=== PATIENT | male | born 1955 | race Caucasian/White ===

== ENCOUNTER → 2017-01-31 | Outpatient (CLI) | payer OTHER ==
[~2017-01-31] VITALS: Ht 185.4 cm; Wt 101.3 kg
[~2017-01-31] MED LIST: AFRINWC; ASPCH81; ASPI-589 PEG; ATEN50TA8 PO; FENO134C2 PO; FLM4 PO; IBUP-103 PO; NTRGSL/4 UT; OMEG10007 PO; SERT-234 PO; SIMV40TA2 PO
[2017-01-31 13:32] VITALS: BP 127/78; PULSE 68; Ht 185.4 cm; Wt 101.3 kg
== END | disposition home or self-care (01) ==
LOC: C.NEUR 13:06
PROVIDERS: ATTEND Physician Assistant
DX: G47.30 Sleep apnea, unspecified (principal); E78.1 Pure hyperglyceridemia; I25.10 Atherosclerotic heart disease of native coronary artery without angina pectoris; Z87.891 Personal history of nicotine dependence

== ENCOUNTER 2017-03-29 05:02 | Inpatient (IN) | payer OTHER ==
[2017-02-08 13:18] VITALS: BMI 29.0
--- NOTE | 2017-02-08 13:58 | PAT Medication Instructions ---
Service Date Feb 08, 2017. Current Home Medication List Aspirin (Aspirin Adult Low Dose), 1 TAB PEG QPM Atenolol (Tenormin), 50 MG PO QPM Fenofibrate (Tricor ), 134 MG PO QAM Fish Oil ([place]-3), 1 CAP PO QAM Ibuprofen Tab (Advil), 200-600 MG PO Q4H PRN for Pain Nitroglycerin (Nitrostat), 0.4 MG UT PRN Oxymetazoline Hcl (Afrin 0.05% Nasal [place]), 1 SPRAY NA allergies Sertraline (Zoloft), 100 MG PO QAM Simvastatin (Zocor), 40 MG PO QPM Tamsulosin HCl (Tamsulosin HCl), 1 TAB PO QPM Medication Instructions For Your Scheduled Surgery - Check with surgeon for instructions: Ibuprofen Tab (Advil), 200-600 MG PO Q4H PRN for Pain - Hold the following medications 2 weeks prior to surgery: Fish Oil ([place]-3), 1 CAP PO QAM - Take the following medications the morning of surgery with a sip of water: Sertraline (Zoloft), 100 MG PO QAM OxymetazolineNitroglycerin (Nitrostat), 0.4 MG UT PRN (if needed) Nasal Hcl (Afrin 0.05% Nasal [place]), 1 SPRAY NA allergies (if needed) Fenofibrate (Tricor ), 134 MG PO QAM Nitro PRN (if needed) - Take the following medications as scheduled the night before surgery: Tamsulosin HCl (Tamsulosin HCl), 1 TAB PO QPM Simvastatin (Zocor), 40 MG PO QPM Oxymetazoline Hcl (Afrin 0.05% Nasal [place]), 1 SPRAY NA allergies (if needed) Atenolol (Tenormin), 50 MG PO QPM Aspirin (Aspirin Adult Low Dose), 1 TAB PEG QPM (okay to continue per surgeon) Nasal Hcl (Afrin 0.05% Nasal [place]), 1 SPRAY NA allergies (if needed) Nitro PRN (if needed) If you have any questions please call us at [phone] or [phone] or [phone]
--- NOTE | 2017-02-08 14:39 | DIAGNOSTIC IMAGING REPORT ---
CHEST PREADMISSION(PA/LAT) CLINICAL HISTORY: 62 years-old Male presenting with preoperative assessment. TECHNIQUE: PA and lateral views of the chest were obtained. COMPARISON: 11/15/2006. FINDINGS: Cardiac silhouette top normal in size. A coronary artery stent may be in place. Lungs and pleural spaces clear. Degenerative changes of the thoracic spine. Upper abdomen normal. IMPRESSION: 1. No acute cardiopulmonary disease. Electronically signed by: Tio Zepeda M.D. 02/08/2017 2:38 PM Dictated Date/Time: 02/08/2017 2:37 PM
[2017-02-08 15:30] LABS: BASO % 0.6 %; BASO ABS # 0.04 K/uL (0-0.2); COMPLETE YES; EOS % 1.4 %; IG% 0.3 %; LYMPH % 33.2 %; LYMPH ABS # 2.15 K/uL (1.2-3.4); MEAN CELL VOLUME 88.8 fL (80-100); MEAN CORPUSCULAR HEMOGLOBIN 30.8 pg (25-34); MEAN CORPUSCULAR HGB CONC 34.7 g/dl (32-36); MEAN PLATELET VOLUME 10.7 fL (7.4-10.4); MONO % 7.3 %; NEUT % 57.2 %; PLATELET COUNT 236 K/uL (130-400); RED BLOOD COUNT 4.84 M/uL (4.7-6.1); WHITE BLOOD COUNT 6.48 K/uL (4.8-10.8)
[2017-02-08 15:42] LABS: INR 1.1 (0.9-1.1); PROTHROMBIN TIME (PATIENT) 11.5 SECONDS (9.0-12.0)
[2017-02-08 16:11] LABS: BUN/CREATININE RATIO 23.9 (10-20); CREATININE 1.1 mg/dl (0.60-1.40); POTASSIUM 4.1 mmol/L (3.5-5.1)
--- NOTE | 2017-03-23 19:30 | HISTORY & PHYSICAL EXAMINATION ---
DATE OF ADMISSION: 03/29/2017 CHIEF COMPLAINT: Left knee pain. HISTORY OF PRESENT ILLNESS: A 62-year-old gentleman who presents for surgical treatment of his left knee. He has got a 3-year history of increasing left knee pain and discomfort, treated by my partner Dr. Stiles. He has had an injection into his knee which helped him initially. The second shot did not help much. He has become more debilitated by his pain. With use of ice, elevation, anti-inflammatories with minimal relief. He has difficulty going on any long walks. He has difficulty going up and down steps. The more he walks, the more it hurts. He would like to proceed with surgical treatment. PAST MEDICAL HISTORY: 1. Elevated cholesterol. 2. Coronary artery disease, status post stent placement in [facility]2006, on baby aspirin. 3. Sleep apnea with CPAP machine. 4. Anxiety. 5. Low back pain/sciatica. PAST SURGICAL HISTORY: Include cardiac catheterization and stent placement in 2006. ALLERGIES: SULFA. CURRENT MEDICINES: Include: 1. Atenolol. 2. Fenofibrate. 3. Atorvastatin. 4. Zoloft. 5. Flomax. 6. Aspirin 81 mg. 7. NSAIDS intermittently. SOCIAL HISTORY: A 62-year-old male. He is . He does not smoke. One drink per week. FAMILY HISTORY: Colon cancer. REVIEW OF SYSTEMS: Negative for diabetes, neurologic problems, vascular problems, bleeding disorders. Denies any chest pain, no shortness of breath. No history of DVT or PE. No bleeding problems. PHYSICAL EXAMINATION: GENERAL: Reveals a healthy, pleasant, middle-aged male. He looks to be in pretty good health. HEENT: Benign. NECK: Supple. No lymphadenopathy. LUNGS: Clear to auscultation. HEART: Regular rate and rhythm. ABDOMEN: Soft, nontender, nondistended. EXTREMITIES: Grossly neurovascularly intact except as follows: Examination of the knee and leg reveals the patient walks independently. He has got varus alignment to his knee. With weightbearing, he does have a varus thrust. He has got bony hypertrophy medially. Range of motion is 5-10 degrees short of full extension to 120 degrees of flexion. No instability. No pain with hip motion. X-RAYS: X-rays of the left knee were reviewed. It shows advanced left knee medial compartment DJD. He has got complete loss of his medial joint space. He has got some loose pieces in his intercondylar notch area. He has got significant patellofemoral arthritis. ASSESSMENT: A 62-year-old male with advanced left knee degenerative joint disease. He has failed conservative care and would like to have his left knee replaced. PLAN: We are going to take him to the operating room and do a left total knee replacement. The risks and benefits of this procedure were explained to the patient including but not limited to DVT, PE, , infection, neurologic injury, vascular injury, bleeding problems, pain, limited range of motion, stiffness, failure to relieve symptoms, incomplete relief of symptoms, need for further surgery in the future, etc. The patient understands and desires to assess. Informed consent was obtained. As far as discharge plans, he is planning to be discharged to home in using the [facility] home health program. We talked to him about taking atenolol the morning of surgery. We will plan on aspirin twice a day for DVT prophylaxis.
[~2017-03-29] VITALS: Ht 185.4 cm; Wt 96.3 kg
[2017-03-29] VITALS (9 sets, daily range): BP systolic 100–120; BP diastolic 58–75; PULSE 49–66; TEMP 36.4–37.3; O2SAT 94–98; Ht 185.4 cm; Wt 96.3 kg
[~2017-03-29 05:02] MED LIST changes: -ASPCH81; -ASPI-589 PEG; +ASPI-589 PO
[2017-03-29] MEDS ORDERED: METF1TAB53 PO (05:50)
[2017-03-29] MEDS ORDERED: BUPIVACAINE LIPOSOME 266 MG, BUPIVACAINE/EPINEPHRINE INJ 50 ML, SODIUM CHLORIDE 0.9% PF... INFIL SCH ×3 (06:00)
[2017-03-29] MEDS ORDERED: LACTATED RINGER'S 1000ML IV SCH (06:00)
[2017-03-29] MEDS ORDERED: ACETAMINOPHEN 500 MG TAB PO SCH (06:00)
[2017-03-29] MEDS ORDERED: SCOPOLAMINE 1.5 MG TDSY TD SCH (06:00)
[2017-03-29] MEDS ORDERED: FAMOTIDINE 20 MG TAB PO SCH (06:00)
[2017-03-29] MEDS ORDERED: METOCLOPRAMIDE HCL 10 MG TAB PO SCH (06:00)
[2017-03-29] MEDS ORDERED: LACTATED RINGER'S 1000ML 500 ML IV ONE (06:00)
[2017-03-29] MEDS ORDERED: LACTATED RINGER'S 1000ML 1,000 ML IV SCH (06:00)
[2017-03-29] MEDS ORDERED: GABAPENTIN 300 MG CAP PO SCH (06:00)
[2017-03-29] MEDS ORDERED: BUPIVACAINE 0.5 % 5 MG/1 ML PF 10ML VIAL ONE (06:17)
[2017-03-29] MEDS ORDERED: ROPIVACAINE 0.5% 5 MG/ML 30 ML VIAL ONE (06:17)
[2017-03-29] MEDS ORDERED: TRANEXAMIC ACID INJ 1,000 MG in SYRINGE 0 ML IV SCH (06:30)
[2017-03-29] MEDS ORDERED: BUPIVACAINE LIPOSOME 1/3% 266 MG/20 ML VIAL INFIL ONE (06:34)
[2017-03-29] MEDS ORDERED: BUPIVACAINE/EPINEPHRINE 0.25% 1:200,000 30 ML VIAL ONE (06:34)
[2017-03-29] MEDS ORDERED: BACITRACIN 50000 UNIT VIAL ONE (06:34)
[2017-03-29] MEDS ORDERED: SODIUM CHLORIDE 0.9% PF 50 ML VIAL ONE (06:34)
[2017-03-29] MEDS ORDERED: FENTANYL CITRATE INJ 50 MCG/1 ML 2 ML VIAL ONE (06:44)
[2017-03-29] MEDS ORDERED: MIDAZOLAM HCL 1 MG/ML 2ML VIAL ONE (06:44)
--- NOTE | 2017-03-29 06:54 | History & Physical Bridge Note ---
H&P Re-Evaluation Bridge Note: I have examined the patient, reviewed the History & Physical and in the interval since the performance of the History & Physical I have noted the following changes of clinical significance: No changes noted
[2017-03-29] MEDS: CEFAZOLIN 2000MG IV PUSH 10 ML IV SCH ×2 (07:07→07:50)
[2017-03-29] MEDS ORDERED: ALBUTEROL HFA INHALER 8.5 GM INH ONE (07:59)
[2017-03-29] MEDS ORDERED: PROPOFOL IV EMULSION 10 MG/ML 20 ML VIAL IV ONE (08:00)
[2017-03-29] MEDS ORDERED: ONDANSETRON INJ 2 MG/ML 2 ML VIAL IV PRN ×2 (08:15→09:00)
[2017-03-29] MEDS ORDERED: HYDROmorphone INJ 2 MG/ML SYR/VIAL IV PRN (08:15)
[2017-03-29] MEDS ORDERED: PHENYLEPHRINE 100MCG/ML 5ML SYR IV PRN (08:15)
[2017-03-29] MEDS ORDERED: ATROPINE SULFATE 0.1 MG/ML 5ML SYR IV PRN (08:15)
[2017-03-29] MEDS ORDERED: EpHEDrine SULFATE INJ 50 MG/ML AMP IV PRN (08:15)
--- NOTE | 2017-03-29 08:50 | [facility] Post Operative Brief Note ---
Immediate Operative Summary Operative Date Mar 29, 2017. Pre-Operative Diagnosis Advanced Left Knee Degenerative Joint Disease Post-Operative Diagnosis Advanced Left Knee Degenerative Joint Disease Procedure(s) Performed Left Total Knee Arthroplasty Surgeon Dr. Blue Security Intelligence Analyst Surgeon(s) ISHAAN Correia Estimated Blood Loss 50 ml Findings Left Knee DJD Specimens A. Left Knee Bone and Tissue Drains None Anesthesia Spinal Complication(s) None Disposition Recovery Room / PACU
[2017-03-29] MEDS ORDERED: GLUCAGON FOR INJ 1 MG VIAL SQ PRN (09:00)
[2017-03-29] MEDS ORDERED: METOCLOPRAMIDE HCL INJ 5 MG/ML 2 ML VIAL IV PRN (09:00)
[2017-03-29] MEDS ORDERED: MAGNESIUM HYDROXIDE SUSP 30 ML UDC PO PRN (09:00)
[2017-03-29] MEDS ORDERED: DEXTROSE 50% 50 ML SYR IV PRN (09:00)
[2017-03-29] MEDS ORDERED: OXYMETAZOLINE HCL 0.05% NA SPR 15 ML BTL PRN (09:00)
[2017-03-29] MEDS ORDERED: ZOLPIDEM TARTRATE 5 MG TAB PO PRN (09:00)
[2017-03-29] MEDS ORDERED: HYDROmorphone INJ 0.5 MG/0.5 ML SYR IV PRN (09:00)
[2017-03-29] MEDS ORDERED: DiphenhydrAMINE HCL 50 MG/ML VIAL IV PRN (09:00)
[2017-03-29] MEDS ORDERED: ALUMINUM/MAGNESIUM/SIMETH (MAALOX MAX) 30 ML UDC PO PRN (09:00)
[2017-03-29] MEDS ORDERED: TAMSULOSIN HCL 0.4 MG CAP PO PRN (09:00)
[2017-03-29] MEDS ORDERED: NITROGLYCERIN 0.4 MG SL PER TAB CHARGE UT PRN (09:00)
[2017-03-29] MEDS ORDERED: GLUCOSE 40% GEL 15 GM TUBE PO PRN (09:00)
[2017-03-29] MEDS ORDERED: GLUCOSE 10 TABS/TUBE PO PRN (09:00)
[2017-03-29] MEDS ORDERED: BISACODYL 10 MG SUPP PR PRN (09:00)
--- NOTE | 2017-03-29 09:14 | OPERATIVE REPORT ---
DATE OF OPERATION: 03/29/2017 PREOPERATIVE DIAGNOSIS: Left knee degenerative joint disease. POSTOPERATIVE DIAGNOSIS: Same. PROCEDURE PERFORMED: Left cemented posterior stabilized total knee arthroplasty. SURGEON: Dr. Zeeshan Blue. PIPE AND TEST SUPERVISOR: Taurus Whitaker PA-C. COMPLICATIONS: None. ESTIMATED BLOOD LOSS: 50 mL. FLUID REPLACEMENT: 1500 mL crystalloid fluid replacement. TOURNIQUET TIME: 60 minutes at 300 mmHg. ANESTHESIA: Spinal with adductor canal block. DRAINS: None. SPECIMENS: Left knee sent for pathology. OPERATIVE INDICATIONS: The patient is a 61-year-old male who has had a 3-year history of gradually increasing and progressive knee pain and discomfort. He has been treated by my partner Dr. Stiles. This became less successful over time. X-rays revealed advanced left knee DJD. He elected to proceed with surgical treatment. OPERATIVE FINDINGS: Operative findings revealed advanced left knee DJD. He had grade 4 [id number] disease extensively in the medial femoral condyle and medial tibial plateau with eburnation in that entire compartment as well as fixed varus deformity to his knee. He had multiple loose bodies in the posterior aspect of his knee. He had a varus alignment to his knee. OPERATIVE IMPLANTS: Operative implants consisted of: 1. Biomet Vanguard size 72.5 left posterior stabilized femoral component. 2. Biomet size 79 tibial tray. 3. A 10 mm posterior stabilized polyethylene insert. 4. A 34 x 8.5 all poly patella. OPERATIVE PROCEDURE: The patient taken to the operating room, identified and placed on the operating table in supine position. All contact areas were appropriately padded. IV antibiotics were provided by anesthesia team. A spinal anesthetic and adductor canal block had been provided in the holding area. Garcias catheter was placed in sterile fashion. A left thigh tourniquet was then placed and left lower extremity was then prepped and draped in the usual sterile fashion. Left leg was elevated and exsanguinated with the use and exsanguinated with use of an Esmarch and tourniquet was placed at 300 mmHg. An anterior approach to the left knee was then performed through a longitudinal incision centered over the patella. Sharp dissection was carried down through the subcutaneous tissues down to the level of the extensor mechanism. A medial parapatellar arthrotomy incision was made. Some subperiosteal dissection was carried out medially. The fat pad was resected from beneath the patellar tendon. Lateral patellofemoral ligament was released. The patella was everted and knee was flexed. The osteophytes were taken off the distal femur. The ACL and PCL were then released from the distal femur and the tibia subluxated anteriorly. The external tibial alignment jig was then placed on the anterior face of the tibia and adjusted 16 mm medially. Proximal tibial cut was made to remove about a millimeter or 2 of bone from the most deficient aspect of the medial tibial plateau. The tibia was then sized to a size 79. Some osteophytes were taken off medial and posteromedially. Attention was then drawn to the femur. The distal femur was entered with a sharp drill bit. Intramedullary canal was suctioned. A left 6-degree valgus cutting guide was placed. Distal femoral cutting block was pinned in place. Distal femoral cut was made to take an additional 3 mm of bone off the distal femur. The femur was then sized to a size 72.5. We did downsize this slightly. The AP cutting block was pinned parallel to the epicondylar axis, which was 5 degrees of external rotation. The anterior cut, anterior chamfer, posterior cut, posterior chamfer cuts were made. Box cutting guide was placed and adjusted slightly lateral and the box cut was made. The knee was flexed. The remnants of the medial and lateral menisci were excised. The osteophytes were taken off the posterior aspect of the femur. A trial femoral component was placed. Tibial tray was pinned in maximum external rotation and drill and stem punch were used to create defect in proximal tibia for the tibial tray. The knee was then trialed and a 10 mm insert fit most appropriately. Attention was then drawn to the patella. The patella was cleaned of all soft tissues. Patella thickness measured 21 mm in thickness and was cut down to 14. It was sized to a 34 patella. Lug holes were drilled for a 34 patella. Lateral osteophyte was removed. Patella button was placed. Knee was taken through range of motion and the patella tracked nicely with no thumbs test. Attention was then drawn toward placement of the permanent components. All trial components were removed. A bone plug was placed in the distal femur to limit blood loss. A double batch of [place] G cement was mixed. A left size 72.5 posterior stabilized femoral component, size 79 tibial tray, a 10 mm posterior stabilized polyethylene insert, and a 34 x 8.5 all poly patella then cemented in place. Knee was brought out into full extension until cement hardened. A final cement check was then performed. Pericapsular tissues were injected with a total of 100 mL of a combination of 20 mL of Exparel, 30 mL of normal saline, 50 mL of 0.25% Marcaine with epinephrine. The patient did receive 1 gram of tranexamic acid. The tourniquet was then let down for final tourniquet time of 60 minutes. Hemostasis was assured with use of electrocautery. The extensor mechanism was then closed with a combination of #1 PDS suture and #1 Vicryl suture in a [id number] fashion. Extensor mechanism was checked and found to be intact. The subcutaneous tissues were then closed with 2-0 Dexon suture in buried interrupted fashion. Skin was closed skin piyush. Leg was then cleaned and dried and a sterile dressing of Xeroform, 4 x 4, sterile cast padding and Tyrone bandage were applied. The patient was then transferred to the recovery room in stable condition. The patient tolerated the procedure with no complications. All needle and sponge counts were correct at the end of the operation. I attest to the content of the Intraoperative Record and any orders documented therein. Any exception s are noted below.
--- NOTE | 2017-03-29 09:28 | DIAGNOSTIC IMAGING REPORT ---
L KNEE 1 OR 2 VIEWS ROUTINE CLINICAL HISTORY: 62 years-old Male presenting with AP/LATERAL IN PACU LEFT KNEE. TECHNIQUE: Frontal and crosstable lateral views the left knee were obtained. COMPARISON: 10/26/2016. FINDINGS: There has been interval total left knee arthroplasty potentially with patellar resurfacing. Intra-articular and soft tissue emphysema noted as well as overlying skin piyush. Underlying osteopenia may be present. No acute fracture or malalignment. IMPRESSION: Expected postsurgical appearance status post total left knee arthroplasty. Electronically signed by: Tio Zepeda M.D. 03/29/2017 9:26 AM Dictated Date/Time: 03/29/2017 9:25 AM
--- NOTE | 2017-03-29 12:12 | Anesthesiology Progress Note ---
Anesthesia Post Op Note Date & Time Mar 29, 2017 at 12:12 Vital Signs Pain Intensity: 0.0 Vital Signs Past 12 Hours Date Time Temp Pulse Resp B/P (MAP) Pulse Ox O2 Delivery O2 Flow Rate FiO2 03/29/17 11:10 54 16 107/66 (80) 96 03/29/17 10:45 50 17 115/69 (84) 97 03/29/17 10:10 36.6 54 16 100/61 (74) 97 Nasal Cannula 2.0 03/29/17 10:10 Nasal Cannula 2.0 03/29/17 10:10 97 Nasal Cannula 2.0 03/29/17 09:50 36.4 55 18 105/59 96 Nasal Cannula 2 03/29/17 09:40 56 16 117/64 94 Nasal Cannula 2 03/29/17 09:30 52 17 113/67 96 Nasal Cannula 2 03/29/17 09:20 56 15 118/64 96 Nasal Cannula 2 03/29/17 09:10 53 16 108/57 98 Nasal Cannula 2 03/29/17 09:00 60 21 109/61 95 Oxymask 10 03/29/17 08:54 36.0 65 12 110/63 94 Oxymask 10 03/29/17 05:52 36.6 52 20 115/67 95 Room Air Notes Mental Status: alert / awake / arousable, participated in evaluation Pt Amnestic to Procedure: Yes Nausea / Vomiting: adequately controlled Pain: adequately controlled Airway Patency, RR, SpO2: stable & adequate BP & HR: stable & adequate Hydration State: stable & adequate Anesthetic Complications: no major complications apparent
[2017-03-29] MEDS: SODIUM CHLORIDE 0.9% 1000ML 1,000 ML IV SCH ×2 (12:36→19:25)
[2017-03-29] MEDS: FERROUS GLUCONATE 324 MG TAB PO SCH ×2 (12:37→18:06)
[2017-03-29] MEDS: INSULIN HUMAN REGULAR SC SCH ×3 (12:59→21:51)
[2017-03-29] MEDS: OXYCODONE HCL IR 5 MG TAB (IMMEDIATE RELEASE) PO PRN ×2 (13:44→14:35)
--- NOTE | 2017-03-29 13:47 | PROGRESS NOTE ---
DATE: 03/29/2017 DATE: 03/29/2017 SUBJECTIVE: A 62-year-old gentleman postop from a left knee replacement. He is doing pretty well. Just starting to feel some pain in his leg. No chest pain or shortness of breath. Not feeling dizzy or lightheaded. OBJECTIVE: VITAL SIGNS: Temperature 36.6. Vital signs stable. PHYSICAL EXAMINATION: GENERAL: Reveals a healthy, pleasant middle-aged female. She is sitting up in bed and looks pretty comfortable. He has been talking to his son. LUNGS: Clear to auscultation. HEART: Regular rate and rhythm. ABDOMEN: Soft, nontender, nondistended. EXTREMITY EXAMINATION: Grossly neurovascularly intact except as follows: Examination of the left leg reveals the dressing to be clean, dry and intact. Leg is well aligned. He can dorsiflex and plantarflex his foot appropriately. He is neurologically intact. X-RAYS: X-rays of the left knee from recovery room reviewed. It shows a left cemented posterior right total knee arthroplasty. Components looked to be in good position. No signs of problems. ASSESSMENT: A 62-year-old gentleman postop from a left knee replacement, doing well. His pain is controlled. He is neurologically intact. PLAN: 1. DVT prophylaxis including thigh-high TEDs, SCDs, and aspirin twice a day. 2. PT/OT. Weightbearing as tolerated. Left total knee protocol. 3. Pain control. Doing well with current pain regimen. 4. IV antibiotics x24 hours. 5. Disposition. He is planning to be discharged to home likely with some home health once adequately recovered.
[2017-03-29] MEDS: ACETAMINOPHEN 500 MG TAB PO SCH ×2 (13:58→21:48)
[2017-03-29] MEDS ORDERED: TRANEXAMIC ACID INJ 1,000 MG in SODIUM CHLORIDE 0.9% 100ML 100 ML IV SCH (14:00)
[2017-03-29] MEDS: KETOROLAC TROMETHAMINE 30 MG/ML VIAL IV. SCH ×2 (15:22→21:47)
[2017-03-29] MEDS: CHECK SCOPOLAMINE PATCH PLACEMENT SCH (15:22)
[2017-03-29] MEDS: CEFAZOLIN IV 2,000 MG in SYRINGE 0 ML IV SCH (18:06)
[2017-03-29] MEDS: TAPENTADOL ER 50 MG TABCR PO SCH (21:43)
[2017-03-29] MEDS: SENNA 8.6 MG TAB PO SCH (21:44)
[2017-03-29] MEDS: SIMVASTATIN 40 MG TAB PO SCH (21:44)
[2017-03-29] MEDS: DOCUSATE SODIUM 100 MG CAP PO SCH (21:45)
[2017-03-29] MEDS: TAMSULOSIN HCL 0.4 MG CAP PO SCH (21:45)
[2017-03-29] MEDS: ASPIRIN 325 MG ECTAB PO SCH (21:45)
[2017-03-30] VITALS (8 sets, daily range): BP systolic 106–120; BP diastolic 61–74; PULSE 60–73; TEMP 36.8–37.5; O2SAT 92–96
[2017-03-30] MEDS: CHECK SCOPOLAMINE PATCH PLACEMENT SCH ×3 (00:24→16:25)
[2017-03-30] MEDS: CEFAZOLIN IV 2,000 MG in SYRINGE 0 ML IV SCH (02:58)
[2017-03-30] MEDS: SODIUM CHLORIDE 0.9% 1000ML 1,000 ML IV SCH (02:59)
[2017-03-30] MEDS: KETOROLAC TROMETHAMINE 30 MG/ML VIAL IV. SCH ×4 (03:02→22:23)
[2017-03-30] MEDS: ACETAMINOPHEN 500 MG TAB PO SCH ×3 (05:33→22:24)
[2017-03-30 07:46] LABS: HEMATOCRIT 38.5 % (42-52); MEAN CELL VOLUME 89.5 fL (80-100); MEAN CORPUSCULAR HEMOGLOBIN 30.5 pg (25-34); MEAN PLATELET VOLUME 9.8 fL (7.4-10.4); PLATELET COUNT 213 K/uL (130-400); WHITE BLOOD COUNT 10.28 K/uL (4.8-10.8)
[2017-03-30 08:14] LABS: BUN/CREATININE RATIO 16.6 (10-20); CALCIUM 8.6 mg/dl (8.5-10.1); CREATININE 1.02 mg/dl (0.60-1.40)
[2017-03-30] MEDS: FERROUS GLUCONATE 324 MG TAB PO SCH ×3 (08:19→18:39)
[2017-03-30] MEDS: DOCUSATE SODIUM 100 MG CAP PO SCH ×2 (08:20→21:08)
[2017-03-30] MEDS: MULTIVITAMIN TAB PO SCH (08:20)
[2017-03-30] MEDS: ASPIRIN 325 MG ECTAB PO SCH ×2 (08:20→21:08)
[2017-03-30] MEDS: PANTOprazole SOD 40 MG TAB PO SCH (08:20)
[2017-03-30] MEDS: SERTRALINE HCL 100 MG TAB PO SCH (08:20)
[2017-03-30] MEDS ORDERED: ASPEC325 PO (08:26)
[2017-03-30] MEDS ORDERED: RXC5 PO (08:26)
[2017-03-30] MEDS: INSULIN HUMAN REGULAR SC SCH ×4 (08:26→21:00)
[2017-03-30] MEDS ORDERED: ACET-24 PO (08:26)
[2017-03-30] MEDS: TAPENTADOL ER 50 MG TABCR PO SCH ×2 (08:27→21:11)
--- NOTE | 2017-03-30 08:28 | Discharge Instructions ---
Discharge Instructions Date of Service Mar 30, 2017. Admission Reason for Admission: Left Knee Degenerative Joint Disease Discharge Discharge Diagnosis / Problem: Left Knee Replacement Discharge Goals Goal(s): Decrease discomfort, Improve function, Increase independence, Improve disease control, Therapeutic intervention Activity Recommendations Activity Limitations: per Instructions/Follow-up section Weightbearing Status: Left weightbearing . Instructions / Follow-Up Instructions / Follow-Up ACTIVITY RECOMMENDATIONS: Physical Therapy: * You will go to physical therapy three times each week for four to six weeks after your surgery in order to regain your knee range of motion and to retrain your knee to work properly. * It is just as important to make sure you are getting your knee perfectly straight as it is to regain your knee bend. * Taking a pain pill an hour before therapy can help you have a more productive and comfortable therapy session. Home Exercise: * You were shown a series of exercises (heel props, heel slides, etc.) in the hospital. Do these exercises three to four times each day including the exercises you were shown in physical therapy. Walking: * Get up and walk several times each day. For the first four weeks, try not to stand or walk for more than one hour at a time. If you do stand or walk for more than one hour, you will not hurt anything, but your knee and leg will likely swell. * As you feel comfortable, you may change from the walker or crutches to a cane and then to independent walking. MEDICATIONS: New Medicine: * You will likely be taking one or more of these medications: 1. Oxycodone - A quick and shorter-acting pain medication. Take one to two tablets every four to six hours to lessen your pain. 2. Aspirin - Thins your blood to lessen the chance of forming a blood clot. * The most common side effects of pain medicine and iron are nausea and constipation. If nausea or constipation is too much of a problem or if you have any questions about your new medicines or doses, call [facility] at . We will try to help you manage these issues. VERY IMPORTANT TO READ AND REVIEW" Pain: * The immediate post-operative period after knee replacement surgery is often quite painful. * You are given a prescription for pain medicine. You should take it, as directed, when you need it, especially before physical therapy and before going to bed. Pain that interferes with sleep is very common and can last several months. * You will likely need pain medicine for the first four to six weeks. It will not stop all of the pain. The pain will lessen and as you feel better, you may change to milder pain medicine such as Tylenol. * The most common side effects of pain medicine are nausea and constipation, so don't take more than you need. SPECIAL CARE INSTRUCTIONS: TEDs/Elastic Stockings: * The white elastic stockings help limit swelling and prevent blood clots from forming in your legs. The more you wear them, the more they work. * Wear them for six weeks after knee replacement surgery and four weeks after partial knee replacement. Prevention of Infection: * Take antibiotics one hour before any dental cleaning, dental work, urological procedure, gastrointestinal procedure or any invasive surgery in order to prevent your new joint from getting infected. * You may get the antibiotics from the doctor performing the procedure or you may call our office at before and we will call in a prescription to the pharmacy of your choice. Things to Watch For: * Drainage from the incision site that occurs more than one week after your surgery. * Severely increased knee/leg pain or swelling. * Increased redness at the incision site. * Fever above 102 degrees Fahrenheit. * Unusual chest pain or shortness of breath. * Unusual pain or burning with urination. Call [facility] at with any of the above problems or if you have any questions about your medicines or recovery. FOLLOW UP VISIT: Make an appointment to see your doctor for approximately two weeks after surgery for a progress check and staple removal by calling the office at . Current Hospital Diet Patient's current hospital diet: Diabetes Type 2 Diet Discharge Diet Recommended Diet: Diabetes Type 2 Diet Procedures Procedures Performed: Left Total Knee Arthroplasty Pending Studies Studies pending at discharge: no Medical Emergencies . Who to Call and When: Medical Emergencies: If at any time you feel your situation is an emergency, please call [phone] immediately. . Non-Emergent Contact Non-Emergency issues call your: Surgeon . "Provider Documentation" section prepared by Zeeshan Blue. . VTE Core Measure Inpt VTE Proph given/why not?: Other Anticoagulation, T.E.D. Stockings, SCD's
--- NOTE | 2017-03-30 08:33 | PROGRESS NOTE ---
DATE: 03/30/2017 SUBJECTIVE: A 62-year-old gentleman postop day #1 from a left knee replacement. Pretty painful yesterday and last evening, but better this morning. No chest pain or shortness of breath. Not feeling dizzy or lightheaded. OBJECTIVE: VITAL SIGNS: Temperature 37.0. Vital signs stable. EXTREMITIES: Physical examination of left foot and leg reveals the leg to be well aligned. Dressing is clean, dry, and intact. He can dorsiflex and plantarflex his foot appropriately. He is neurologically intact. He can nearly do a straight leg raise. LABORATORY DATA: Hemoglobin is 13.1. Hematocrit 38.5. Electrolytes are pending. ASSESSMENT: A 62-year-old gentleman postop day #1 from left knee replacement, doing pretty well. Pain has been reasonably well controlled. He is neurologically intact. PLAN: 1. DVT prophylaxis including thigh-high TEDs, SCDs, and aspirin twice a day. 2. PT/OT. Weightbear as tolerated. Left total knee protocol. 3. Pain control. Doing pretty well with current pain regimen. 4. Disposition: He is planning to be discharged to home with some home health once adequately recovered.
[2017-03-30] MEDS: TAMSULOSIN HCL 0.4 MG CAP PO SCH (21:09)
[2017-03-30] MEDS: SENNA 8.6 MG TAB PO SCH (21:11)
[2017-03-30] MEDS: SIMVASTATIN 40 MG TAB PO SCH (21:12)
[2017-03-31] MEDS: CHECK SCOPOLAMINE PATCH PLACEMENT SCH ×2 (00:23→08:00)
[2017-03-31] MEDS: KETOROLAC TROMETHAMINE 30 MG/ML VIAL IV. SCH ×2 (04:15→09:15)
[2017-03-31] MEDS: ACETAMINOPHEN 500 MG TAB PO SCH (05:38)
[2017-03-31] MEDS: INSULIN HUMAN REGULAR SC SCH (08:00)
[2017-03-31] MEDS ORDERED: FENOFIBRATE 134 MG PO SCH (09:00)
[2017-03-31] MEDS: MULTIVITAMIN TAB PO SCH (09:12)
[2017-03-31] MEDS: DOCUSATE SODIUM 100 MG CAP PO SCH (09:12)
[2017-03-31] MEDS: FERROUS GLUCONATE 324 MG TAB PO SCH (09:12)
[2017-03-31] MEDS: ASPIRIN 325 MG ECTAB PO SCH (09:12)
[2017-03-31] MEDS: PANTOprazole SOD 40 MG TAB PO SCH (09:12)
[2017-03-31] MEDS: SERTRALINE HCL 100 MG TAB PO SCH (09:13)
[2017-03-31] MEDS: TAPENTADOL ER 50 MG TABCR PO SCH (09:17)
[2017-03-31 09:50] VITALS: BP 111/64; PULSE 73; TEMP 37.4; O2SAT 92
--- NOTE | 2017-03-31 10:23 | PROGRESS NOTE ---
DATE: 03/31/2017 SUBJECTIVE: A 62-year-old gentleman, postop day 2 from a left knee replacement. Doing pretty well. Pain seems to be better today. Had a good night. No chest pain or shortness of breath. Not feeling dizzy or lightheaded. OBJECTIVE: VITAL SIGNS: Temperature 37.4. Vital signs stable. GENERAL: Reveals an elderly, pleasant middle-aged male. I had to wake him this morning. EXTREMITIES: Examination of left leg reveals the dressing to be clean, dry, and intact. Not much swelling. No drainage. He can dorsiflex and plantarflex his foot appropriately. He is neurologically intact. ASSESSMENT: A 62-year-old gentleman, postop day 2 from a left knee replacement, doing well. Pain is controlled. He is neurologically intact. PLAN: 1. DVT prophylaxis including thigh-high TEDs, SCDs, and aspirin. 2. PT/OT. Weight bear as tolerated. Left total knee protocol. 3. Pain control. Doing well with current pain regimen. 4. Disposition. Plan to discharge to home with some home health later today.
--- NOTE | 2017-04-02 14:30 | DISCHARGE SUMMARY ---
ADMITTING PHYSICIAN AND SURGEON: Dr. Blue. ADMITTING DIAGNOSIS: Left knee degenerative joint disease. SURGERY PERFORMED: Left total knee arthroplasty. SECONDARY DIAGNOSES: Include elevated cholesterol, coronary artery disease, sleep apnea, anxiety, low back pain, sciatica. CONSULTS: None obtained. HISTORY AND PHYSICAL EXAMINATION: Well documented in the patient's chart. HOSPITAL COURSE: The patient was admitted on 03/29/2017 and underwent total knee arthroplasty. He tolerated the procedure well. There were no complications. He was transferred to the PACU postoperatively and later to the orthopedic floor for further care. He was given Ancef for antibiotic prophylaxis, KIRILL stockings, SCDs and aspirin for DVT prophylaxis. Hemoglobin, hematocrit and vital signs were monitored during his hospital stay and remained stable, did not require any blood transfusions. There were no complications. By postoperative day 2, he was tolerating a diabetic diet. Pain was controlled with oral pain medicine. He was participating in physical therapy and had no signs or symptoms of deep vein thrombosis. On postop day 2, he was discharged home and set up with home health services. He was given printed discharge instructions, including new prescriptions for extra strength Tylenol, aspirin 325 mg b.i.d., oxycodone. Continue his home medications with the exception of his home dose of aspirin, which was changed. Continue physical therapy, weightbearing as tolerated and KIRILL stockings. Follow up in 10-12 days or sooner if there are any problems or concerns.
== END 2017-03-31 12:20 | disposition home health service (06) | DRG 470 ==
LOC: C.ACU 05:02 → C.3E 06:40 → ENRESERV 09:54
PROVIDERS: ADMIT Orthopaedic Surgery Sports Medicine; ATTEND Orthopaedic Surgery Sports Medicine
PROC: 0SRD0J9 Replacement of Left Knee Joint with Synthetic Substitute, Cemented, Open Approach (ICD-10-PCS; principal; 2017-03-29 07:00)
DX: M17.12 Unilateral primary osteoarthritis, left knee (principal); E78.00 Pure hypercholesterolemia, unspecified; I25.10 Atherosclerotic heart disease of native coronary artery without angina pectoris; G47.33 Obstructive sleep apnea (adult) (pediatric); F41.9 Anxiety disorder, unspecified; M54.40 Lumbago with sciatica, unspecified side; Z95.5 Presence of coronary angioplasty implant and graft; Z79.82 Long term (current) use of aspirin; Z88.2 Allergy status to sulfonamides; Z80.0 Family history of malignant neoplasm of digestive organs